=== PATIENT | female | born 1940 | race Caucasian/White ===

== ENCOUNTER → 2017-11-15 | Outpatient (CLI) | payer MEDICARE | END | disposition home or self-care (01) | LOC: US 14:54 | DX: E04.1 Nontoxic single thyroid nodule (principal) ==

== ENCOUNTER 2018-02-16 01:50 | Inpatient (IN) | payer MEDICARE ==
[2018-02-16] VITALS (9 sets, daily range): BP systolic 126–187; BP diastolic 52–83
[~2018-02-16] VITALS: Ht 162.6 cm; Wt 70.4 kg
--- NOTE | ~2018-02-16 | EKG ---
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
--- NOTE | ~2018-02-16 | PR ---
[place], [place] PROGRESS NOTE [id number] UNIT #: [id number] ROOM: 526 DOCTOR: VAUGHN STONER MD BIRTHDATE: [birth year] DOS: 02/17/2018 SUBJECTIVE: She was seen by Dr. Scherer yesterday. This patient has been on doxycycline, had some retrosternal discomfort and also dyspepsia and some loss of appetite. PHYSICAL EXAMINATION: GENERAL: The patient who is very pleasant, alert. She is comfortable. Complexion is fine. VITAL SIGNS: Pulse is regular at 76, blood pressure normal as well. NECK: Normal JVP, no murmurs. LUNGS: Clear. EXTREMITIES: No edema in the lower extremities. ABDOMEN: Epigastrium is vaguely tender. No guarding or rigidity. Bowel sounds are normal. IMPRESSION: This patient had some retrosternal discomfort and dyspepsia. Doxycycline may be responsible for this. No acute cardiac problems are identified. No further workup is necessary. VAUGHN STONER MD CM:PNTRANS [id number] VAUGHN STONER MD 02/17/181911 interface
--- NOTE | ~2018-02-16 | CON ---
[place], [place] REPORT OF CONSULTATION NAME: ANTHONY LE UNIT #: [id number] ROOM: 526 DOCTOR: MAIA JACKSONKANDI BIRTHDATE: [birth year] DOS: 02/16/2018 REASON FOR CONSULTATION: Atypical chest discomfort and cardiac dysrhythmia. HISTORY OF PRESENT ILLNESS: An 78-year-old female with a known history of bypass surgery 4 years ago. Stress test was about 2 years ago and was negative. The patient admitted with some chest discomfort and lower back pain. The patient also had heaviness and shortness of breath, lightheadedness, diaphoresis, and nausea. No acute EKG changes, suggestion of myocardial injury or infarction. She has had no fever, no chills. The patient admits to tick exposure moving her lawn and believes she may have been bitten by one. Her PCP recently took blood work to assess for Lyme disease and the patient has been started on antibiotics. PAST MEDICAL HISTORY: Coronary artery disease, hypertension, hyperlipidemia, and thyroid cancer. PAST SURGICAL HISTORY: History of Appendectomy. SOCIAL HISTORY: Denies any alcohol abuse, tobacco abuse. FAMILY HISTORY: Positive for coronary artery disease. HOME MEDICATIONS: Carvedilol, aspirin, isosorbide, losartan, and simvastatin. REVIEW OF SYSTEMS: CONSTITUTIONAL: Reports to fever and chills. HEENT: Does have dysphagia. No visual disturbances. CARDIOVASCULAR: As per HPI. GASTROINTESTINAL:. Does have some nausea. RESPIRATORY SYSTEM: Complains of cough. GENITOURINARY: No dysuria. NEUROLOGIC: No syncope. PHYSICAL EXAMINATION: VITAL SIGNS: Blood pressure today 140/70, patient is in sinus rhythm. NECK: Supple, no JVD. LUNGS: Diminished air entry. HEART: Sounds are regular. ABDOMEN: Soft, nontender. NEUROLOGIC: Stable. LABORATORY DATA: White count 5.8, hemoglobin 12, and hematocrit 36.5. Troponins are all negative. DIAGNOSTIC DATA: Chest x-ray, no acute pulmonary process. EKG sinus with nonspecific ST-T changes. IMPRESSION: The patient with a history of bypass surgery with atypical chest discomfort, lymphopenia, hypertension, dyslipidemia, and thyroid cancer. [place], [place] REPORT OF CONSULTATION NAME: ANTHONY LE UNIT #: [id number] ROOM: 526 DOCTOR: KANDI CARVALHO MD BIRTHDATE: [birth year] RECOMMENDATIONS: Agree with the present management at this point. EKG is normal. Agree with cardiac enzymes, so far has been negative. The patient is on IV doxycycline for a questionable Lyme disease that needs to be followed. In the meantime, continue the CHELSEA inhibitors, lipid lowering agents, nitrates, and beta blockers. We will review the echocardiogram and I will follow up. KANDI CARVALHO MD CM:CONSTR:REPORT OF CONSULTATION 7 02/16/18905 interface
--- NOTE | ~2018-02-16 | EKG ---
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
[2018-02-16 02:05] LABS: BASO % 0.7 % (0.0-1.0); EOS # 0.1 10*3/uL (0.0-0.4); EOS % 2.1 % (1.0-4.0); HEMATOCRIT 36.5 % (37.0-47.0); LYMPH # 1.1 10*3/uL (1.3-4.4); LYMPH % 18.3 % (27.0-41.0); MEAN CELL VOLUME 89.5 fl (81.0-99.0); MEAN CORPUSCULAR HGB 29.4 pg (27.0-31.0); MEAN CORPUSCULAR HGB CONC 32.9 g/dl (33.0-37.0); MONO # 0.4 10*3/uL (0.1-1.0); MONO % 7.2 % (3.0-9.0); NEUT # 4.2 10*3/uL (2.3-7.9); NEUT % 71.5 % (47.0-73.0); PLATELET COUNT AUTOMATED 158 10*3/uL (130-400); RED BLOOD COUNT 4.08 10*6/uL (4.10-5.10); RED CELL DISTRI WIDTH 12.7 % (0-14.5); WHITE BLOOD COUNT 5.8 10*3/uL (4.8-10.8)
[2018-02-16 02:14] LABS: ACT PARTIAL THROMBO TIME 21.9 SECONDS (20.8-31.5)
[2018-02-16 02:22] LABS: ALBUMIN 3.2 gm/dl (3.1-4.5); BUN 18 mg/dl (7-24); CHLORIDE 104 mmol/L (98-107); CREATININE 0.72 mg/dL (0.55-1.02); POTASSIUM 4.6 mmol/L (3.5-5.1); SGOT/AST 14 IU/L (3-35); SGPT/ALT 21 U/L (12-78); SODIUM 137 mmol/L (136-145); TOTAL PROTEIN 7.5 gm/dL (6.4-8.2)
[2018-02-16 02:25] LABS: ALKALINE PHOSPHATASE 88 U/L (45-117)
[2018-02-16 02:26] LABS: TROPONIN I < 0.015 ng/ml (<0.045)
[2018-02-16] MEDS ORDERED: LEVOTHYROXINE50 MCG PO (02:33)
[2018-02-16] MEDS ORDERED: CARVEDILOL25 MG PO (02:33)
[2018-02-16] MEDS ORDERED: LOSARTAN POTASS25 M1 PO (02:34)
[2018-02-16] MEDS ORDERED: SIMVASTATIN10 MG PO (02:34)
[2018-02-16] MEDS ORDERED: ASPIRIN81 M1 PO (02:35)
[2018-02-16] MEDS ORDERED: VITAMIN D22000 UNIT PO (02:35)
[2018-02-16] MEDS ORDERED: NITROSTAT0.3 M1 SL (02:36)
[2018-02-16] MEDS ORDERED: ISOSORBIDE DINI30 MG PO (02:37)
[2018-02-16 05:15] LABS: FREE T4 1.3 ng/dl (0.76-1.46); PHOSPHOROUS 3.1 mg/dL (2.5-4.9)
[2018-02-16 05:20] LABS: THYROID STIM HORMONE (HS) 1.88 uIU/ml (0.358-4.75)
[2018-02-16 06:37] LABS: VITAMIN D, 25-HYDROXY 52.8 ng/mL (30-100)
[2018-02-17] VITALS: BP 123/62
[2018-02-17 08:00] VITALS: BP 160/62
[2018-02-17 12:00] VITALS: BP 152/60
[2018-02-17] MEDS ORDERED: DOXYCYCLINE100 M3 PO (16:33)
== END 2018-02-17 18:54 | disposition home or self-care (01) | DRG 313 ==
LOC: ED 01:50 → EDHOLD 02:31 → 5E 02:31
PROVIDERS: Internal Medicine; Student in an Organized Health Care Education/Training Program
DX: R07.89 Other chest pain (principal); I25.709 Atherosclerosis of coronary artery bypass graft(s), unspecified, with unspecified angina pectoris; A69.20 Lyme disease, unspecified; E44.1 Mild protein-calorie malnutrition; R13.19 Other dysphagia; E83.51 Hypocalcemia; D72.810 Lymphocytopenia; I10 Essential (primary) hypertension; E78.5 Hyperlipidemia, unspecified; I16.0 Hypertensive urgency; Z90.49 Acquired absence of other specified parts of digestive tract; Z87.891 Personal history of nicotine dependence; Z82.49 Family history of ischemic heart disease and other diseases of the circulatory system; Z80.7 Family history of other malignant neoplasms of lymphoid, hematopoietic and related tissues; Z79.899 Other long term (current) drug therapy; Z79.82 Long term (current) use of aspirin; Z68.26 Body mass index [BMI] 26.0-26.9, adult; Z85.850 Personal history of malignant neoplasm of thyroid